=== PATIENT | female | born 1975 | race Caucasian/White ===

== ENCOUNTER 2016-09-04 08:23 | Emergency (ER) | payer MEDICAID ==
[~2016-09-04] VITALS: Ht 162.6 cm; Wt 73.5 kg
[2016-09-04 08:26] VITALS: BP 118/77
== END 2016-09-04 10:43 | disposition home or self-care (01) ==
LOC: ED 10:13
DX: J01.00 Acute maxillary sinusitis, unspecified (principal); J01.10 Acute frontal sinusitis, unspecified; H92.03 Otalgia, bilateral
CPT/HCPCS: 99283

== ENCOUNTER 2016-10-15 04:39 | Emergency (ER) | payer MEDICAID ==
[~2016-10-15] VITALS: Ht 160 cm; Wt 65.0 kg
[2016-10-15] MEDS ORDERED: FLUO40CA2 PO (05:40)
[2016-10-15] MEDS ORDERED: LOSA25TA5 PO (05:40)
[2016-10-15] MEDS ORDERED: METO25TA35 PO (05:40)
[2016-10-15] MEDS ORDERED: ARIP5TAB6 PO (05:40)
[2016-10-15] MEDS ORDERED: MORPHINE SULFATE 4 MG/ML, 1ML ONE (05:50)
[2016-10-15] MEDS ORDERED: KETOROLAC 30 MG/1 ML ONE (05:50)
[2016-10-15] MEDS ORDERED: ONDANSETRON 2MG/ML, 2ML ONE (05:50)
[2016-10-15] MEDS ORDERED: ONDANSETRON 2MG/ML, 2ML IVPush ONE (06:00)
[2016-10-15] MEDS ORDERED: KETOROLAC 30 MG/1 ML IVPush ONE (06:00)
[2016-10-15] MEDS ORDERED: SODIUM CHLORIDE 0.9% 1,000ML IVBOLUS ONE (06:00)
[2016-10-15] MEDS ORDERED: MORPHINE SULFATE 4 MG/ML, 1ML IVPush PRN (06:00)
[2016-10-15 06:21] LABS: BLOOD UREA NITROGEN 20 mg/dL (7-18)
[2016-10-15 07:57] VITALS: BP 122/82
== END 2016-10-15 08:15 | disposition home or self-care (01) ==
LOC: ED 05:53
DX: N92.0 Excessive and frequent menstruation with regular cycle (principal); D25.9 Leiomyoma of uterus, unspecified
CPT/HCPCS: 36415; 76830; 80048; 81003; 82040; 84703; 85025; 85610; 96361; 96374; 96375; 99285; J1885; J2405; J7030

== ENCOUNTER 2016-10-15 22:23 | Emergency (ER) | payer MEDICAID ==
[~2016-10-15] VITALS: Ht 157.5 cm; Wt 73.0 kg
[~2016-10-15 22:23] MED LIST: ARIP5TAB6 PO; FLUO40CA2 PO; LOSA25TA5 PO; MEDROXYPROGESTERONE ACETATE 5 MG TABLET PO ONE; METO25TA35 PO
[2016-10-15] MEDS ORDERED: KETOROLAC 30 MG/1 ML IM ONE (22:30)
[2016-10-15] MEDS ORDERED: HYDROmorphone 1 MG/ML, 1ML IM ONE (22:30)
[2016-10-15 22:31] VITALS: BP 125/83
[2016-10-15] MEDS ORDERED: KETOROLAC 30 MG/1 ML ONE (22:41)
== END 2016-10-16 00:45 | disposition home or self-care (01) ==
LOC: ED 23:56
DX: D25.9 Leiomyoma of uterus, unspecified (principal); N93.8 Other specified abnormal uterine and vaginal bleeding; N92.0 Excessive and frequent menstruation with regular cycle
CPT/HCPCS: 36415; 85025; 96372; 99283; J1885

== ENCOUNTER 2016-11-06 13:01 | Emergency (ER) | payer MEDICAID ==
[~2016-11-06] VITALS: Ht 157.5 cm; Wt 74.3 kg
[~2016-11-06 13:01] MED LIST changes: -MEDROXYPROGESTERONE ACETATE 5 MG TABLET PO ONE
[2016-11-06 13:32] LABS: PATH.CAST-FLAG NOT PRESENT; SPERM-FLAG NOT PRESENT; SRC-FLAG NOT PRESENT; XTAL-FLAG NOT PRESENT; YLC-FLAG NOT PRESENT
[2016-11-06 14:06] LABS: HEMATOCRIT 36.4 % (34.6-47.8); HEMOGLOBIN 11.9 g/dL (11.7-16.4); WHITE BLOOD COUNT 9.5 x10^3/uL (3.4-10)
[2016-11-06 14:21] LABS: BLOOD UREA NITROGEN 20 mg/dL (7-18)
[2016-11-06] MEDS ORDERED: KETOROLAC 30 MG/1 ML ONE (15:59)
[2016-11-06] MEDS ORDERED: KETOROLAC 30 MG/1 ML IM ONE (16:00)
[2016-11-06 18:54] VITALS: BP 128/96
== END 2016-11-06 18:57 | disposition home or self-care (01) ==
LOC: ED 14:01
DX: R10.2 Pelvic and perineal pain (principal); R30.0 Dysuria; I10 Essential (primary) hypertension; Z88.8 Allergy status to other drugs, medicaments and biological substances
CPT/HCPCS: 36415; 74000; 74176; 76700; 76830; 80048; 81001; 82040; 84703; 85025; 96372; 99285; J1885

== ENCOUNTER 2016-11-21 09:44 | Emergency (ER) | payer MEDICAID ==
[~2016-11-21] VITALS: Ht 160 cm; Wt 74.1 kg
[~2016-11-21 09:44] MED LIST changes: +ARIP5TAB13 PO; -ARIP5TAB6 PO
[2016-11-21] MEDS ORDERED: HYDROcodone/APAP 7.5-325MG/15ML UDC ONE (10:13)
[2016-11-21] MEDS ORDERED: HYDROcodone/APAP 7.5-325MG/15ML UDC PO ONE (10:30)
[2016-11-21 10:58] VITALS: BP 125/82
== END 2016-11-21 11:01 | disposition home or self-care (01) ==
LOC: ED 10:14
DX: J02.8 Acute pharyngitis due to other specified organisms (principal); J00 Acute nasopharyngitis [common cold]; I10 Essential (primary) hypertension; F10.20 Alcohol dependence, uncomplicated; Z98.51 Tubal ligation status; Z88.6 Allergy status to analgesic agent; Z88.8 Allergy status to other drugs, medicaments and biological substances
CPT/HCPCS: 87081; 87880; 99284

== ENCOUNTER 2016-12-21 14:07 | Emergency (ER) | payer MEDICAID ==
[~2016-12-21] VITALS: Ht 162.6 cm; Wt 76.9 kg
[2016-12-21] MEDS ORDERED: SODIUM CHLORIDE FLUSH 10ML SYR IVF ONE (14:30)
[2016-12-21] MEDS ORDERED: SODIUM CHLORIDE 0.9% 1,000ML IVBOLUS ONE (14:30)
[2016-12-21 15:00] LABS: WHITE BLOOD COUNT 14.7 x10^3/uL (3.4-10)
[2016-12-21] MEDS ORDERED: PHENAZOPYRIDINE 200 MG TABLET PO ONE (15:00)
[2016-12-21 15:09] LABS: BLOOD UREA NITROGEN 20 mg/dL (7-18)
[2016-12-21] MEDS ORDERED: HYDROmorphone 1 MG/ML, 1ML ONE (15:43)
[2016-12-21] MEDS ORDERED: ONDANSETRON 2MG/ML, 2ML ONE (15:43)
[2016-12-21] MEDS ORDERED: ONDANSETRON 2MG/ML, 2ML IVPush ONE (16:00)
[2016-12-21] MEDS ORDERED: HYDROmorphone 1 MG/ML, 1ML IVPush PRN (16:00)
[2016-12-21] MEDS ORDERED: OMNIPAQUE 350 MG/ML, 100ML BOTTLE ONE (17:03)
[2016-12-21 17:40] VITALS: BP 130/91
== END 2016-12-21 17:42 | disposition home or self-care (01) ==
LOC: ED 16:32
DX: D25.9 Leiomyoma of uterus, unspecified (principal); N39.41 Urge incontinence; F17.200 Nicotine dependence, unspecified, uncomplicated
CPT/HCPCS: 36415; 74177; 80048; 81003; 82040; 84703; 85025; 96361; 96374; 96375; 99285; J1170; J2405; J7030; Q9967

== ENCOUNTER 2017-02-07 13:40 | Emergency (ER) | payer MEDICAID ==
[~2017-02-07] VITALS: Ht 162.6 cm; Wt 71.4 kg
[2017-02-07] MEDS ORDERED: LORazepam 1MG TABLET PO ONE (14:30)
[2017-02-07 14:32] LABS: HEMATOCRIT 41.2 % (34.6-47.8); HEMOGLOBIN 13.4 g/dL (11.7-16.4); WHITE BLOOD COUNT 10.5 x10^3/uL (3.4-10)
[2017-02-07 14:43] LABS: BLOOD UREA NITROGEN 23 mg/dL (7-18)
[2017-02-07 14:46] LABS: ACETAMINOPHEN < 2 mcg/mL (10-30)
[2017-02-07 15:16] LABS: DAU SCREEN DISCLAIMER
[2017-02-07 15:31] LABS: HCG UR LOT HCG7030192
[2017-02-07 15:32] LABS: HCG UR OBC PASS
[2017-02-07 15:43] VITALS: BP 137/101
== END 2017-02-07 15:48 | disposition home or self-care (01) ==
LOC: ED 14:58
DX: F33.9 Major depressive disorder, recurrent, unspecified (principal); R73.9 Hyperglycemia, unspecified; E78.5 Hyperlipidemia, unspecified; F10.20 Alcohol dependence, uncomplicated; I12.9 Hypertensive chronic kidney disease with stage 1 through stage 4 chronic kidney disease, or unspecified chronic kidney disease; N18.9 Chronic kidney disease, unspecified
CPT/HCPCS: 36415; 80048; 80307; 80329; 81025; 82040; 85025; 99284; G0479; G0480